=== PATIENT | female | born 1975 | race Two or more races ===

== ENCOUNTER 2023-02-04 08:29 | Outpatient (CLI) | payer OTHER | END 2023-02-04 08:39 | disposition home or self-care (01) | LOC: RAD 08:29 | DX: I10 Essential (primary) hypertension (principal) ==

== ENCOUNTER 2023-02-04 10:48 | Outpatient (CLI) | payer OTHER | END 2023-02-04 10:49 | disposition home or self-care (01) | LOC: NUCLEAR 10:48 | DX: M81.0 Age-related osteoporosis without current pathological fracture (principal); I10 Essential (primary) hypertension ==

== ENCOUNTER 2025-06-28 08:56 | Emergency (ER) | payer OTHER ==
[~2025-06-28] VITALS: Ht 175.3 cm; Wt 86.2 kg
[2025-06-28] MEDS ORDERED: KETOROLAC TROMETHAMINE 60 MG VIAL IM ONE ×2 (10:45→10:53)
[2025-06-28] MEDS ORDERED: DEXAMETHASONE SODIUM PHOSPHATE 4 MG/ML VIAL IM ONE (10:45)
[2025-06-28] MEDS ORDERED: DEXAMETHASONE SODIUM PHOSPHATE 4 MG/ML VIAL ONE (10:53)
[2025-06-28 11:31] LABS: BASO % 0.3 % (0.1-1.2); EOS # 0.13 (0.04-0.54); EOS % 2.1 % (0.7-7.0); LYMPH # 1.56 (1.18-3.74); LYMPH % 24.8 % (19.3-53.1); MEAN PLATELET VOLUME 8.90 fl (9.4-12.4); MONO # 0.39 (0.24-0.82); MONO % 6.2 % (4.7-12.5); NEUT # 4.15 (1.56-6.13); NEUT % 66.1 % (34.0-71.1); RED CELL DISTRIBUTION WIDTH 12.8 % (11.6-14.4)
[2025-06-28 11:55] LABS: BUN CREA RATIO 23.0 (7.0-25.0); CREATININE SERUM 0.7 mg/dL (0.55-1.02); GFR 87.87; GLUCOSE FASTING 90.0 mg/dL (65-100); OSMOLALITY SERUM 282.0 MOSM/KG (275-295); PHOSPHOKINASE CREATININE 39.0 U/L (26-192)
[2025-06-28] MEDS ORDERED: NAPR500T14 PO (12:57)
== END 2025-06-28 13:18 | disposition home or self-care (01) ==
LOC: ER 08:56
DX: M79.18 Myalgia, other site (principal); M25.512 Pain in left shoulder